=== PATIENT | female | born 1985 | race Caucasian/White ===

== ENCOUNTER 2020-12-17 12:00 | Emergency (ER) | payer MEDICAID, OTHER ==
[~2020-12-17] VITALS: Ht 160 cm; Wt 48.9 kg
[2020-12-17 14:21] LABS: ALBUMIN 3.9 GM/DL (3.2-5.2); ALT/SGPT 22 U/L (12-78); BILIRUBIN,DIRECT 0.1 MG/DL (0.0-0.2); BILIRUBIN,TOTAL 0.5 MG/DL (0.2-1.0); BLOOD UREA NITROGEN 14 MG/DL (7-18); CALCIUM LEVEL 8.8 MG/DL (8.5-10.1); CARBON DIOXIDE LEVEL 26 MEQ/L (21-32); CHLORIDE LEVEL 109 MEQ/L (98-107); CREATININE FOR GFR 0.68 MG/DL (0.55-1.30); GLOMERULAR FILTRATION RATE > 60.0 (>60); GLUCOSE, FASTING 77 MG/DL (70-100); POTASSIUM SERUM 4.2 MEQ/L (3.5-5.1); SODIUM LEVEL 140 MEQ/L (136-145); TOTAL PROTEIN 6.7 GM/DL (6.4-8.2)
[2020-12-17 14:49] LABS: HEMATOCRIT 43.6 % (36.0-47.0); MEAN CORPUSCULAR HEMOGLOBIN 29.2 pg (27.0-33.0); MEAN CORPUSCULAR HGB CONC 32.1 g/dl (32.0-36.5); MEAN CORPUSCULAR VOLUME 90.8 fl (80.0-96.0); PLATELET COUNT, AUTOMATED 86 10^3/uL (150-450); WHITE BLOOD COUNT 7.4 10^3/uL (4.0-10.0)
[2020-12-17 15:36] VITALS: BP 111/63
== END 2020-12-17 16:11 | disposition home or self-care (01) ==
LOC: M ED 12:00
DX: D69.6 Thrombocytopenia, unspecified (principal); K21.9 Gastro-esophageal reflux disease without esophagitis; Z88.8 Allergy status to other drugs, medicaments and biological substances; Z91.018 Allergy to other foods; Z91.040 Latex allergy status; F17.210 Nicotine dependence, cigarettes, uncomplicated

== ENCOUNTER → 2021-04-05 | Outpatient (REF) | payer OTHER, MEDICAID ==
[2021-04-05 17:58] LABS: BASO # 0.1 10^3/uL (0.0-0.2); BASO % 0.5 % (0.0-1.0); EOS # 0.2 10^3/uL (0.0-0.5); EOS % 1.9 % (0.0-3.0); HEMATOCRIT 44.2 % (36.0-47.0); HEMOGLOBIN 14.3 g/dl (12.0-15.5); LYMPH # 1.5 10^3/uL (1.5-5.0); LYMPH % 15.9 % (24.0-44.0); MEAN CORPUSCULAR HEMOGLOBIN 29.4 pg (27.0-33.0); MEAN CORPUSCULAR HGB CONC 32.4 g/dl (32.0-36.5); MEAN CORPUSCULAR VOLUME 90.9 fl (80.0-96.0); MONO # 0.5 10^3/uL (0.0-0.8); MONO % 5.6 % (2.0-8.0); NEUTROPHILS # 6.9 10^3/uL (1.5-8.5); NEUTROPHILS % 75.6 % (36.0-66.0); PLATELET COUNT, AUTOMATED 102 10^3/uL (150-450); RED BLOOD COUNT 4.86 10^6/uL (4.00-5.40); WHITE BLOOD COUNT 9.1 10^3/uL (4.0-10.0)
[2021-04-05 18:21] LABS: FREE T4 0.92 NG/DL (0.76-1.46); THYROID STIMULATING HORMONE 1.31 uIU/ML (0.358-3.740)
[2021-04-05 18:22] LABS: LUTEINIZING HORMONE 7.9 mIU/mL
[2021-04-05 18:23] LABS: FOLLICLE STIMULATING HORMONE 8.2 mIU/mL
== END ==
LOC: M SFHCPLAZ 15:13 → M SFHCADAM 15:17
PROVIDERS: ATTEND Family Medicine
DX: D69.3 Immune thrombocytopenic purpura (principal)

== ENCOUNTER 2021-06-02 15:39 | Emergency (ER) | payer MEDICAID, OTHER ==
[~2021-06-02] VITALS: Ht 157.5 cm; Wt 52.2 kg
[2021-06-02] MEDS ORDERED: NS 1,000 ML IV ONE (18:40)
[2021-06-02 20:27] LABS: BASO # 0.1 10^3/uL (0.0-0.2); BASO % 0.6 % (0.0-1.0); EOS # 0.2 10^3/uL (0.0-0.5); EOS % 2.2 % (0.0-3.0); HEMATOCRIT 44.2 % (36.0-47.0); HEMOGLOBIN 14.4 g/dl (12.0-15.5); LYMPH # 2.8 10^3/uL (1.5-5.0); LYMPH % 27.5 % (24.0-44.0); MEAN CORPUSCULAR HEMOGLOBIN 29.2 pg (27.0-33.0); MEAN CORPUSCULAR HGB CONC 32.6 g/dl (32.0-36.5); MEAN CORPUSCULAR VOLUME 89.7 fl (80.0-96.0); MONO # 0.8 10^3/uL (0.0-0.8); NEUTROPHILS # 6.2 10^3/uL (1.5-8.5); NEUTROPHILS % 61.4 % (36.0-66.0); PLATELET COUNT, AUTOMATED 109 10^3/uL (150-450); RED BLOOD COUNT 4.93 10^6/uL (4.00-5.40); WHITE BLOOD COUNT 10.1 10^3/uL (4.0-10.0)
[2021-06-02 20:36] VITALS: BP 117/56
[2021-06-02 20:49] LABS: ALBUMIN 4.1 GM/DL (3.2-5.2); ALT/SGPT 30 U/L (12-78); BILIRUBIN,DIRECT 0.2 MG/DL (0.0-0.2); BILIRUBIN,TOTAL 0.5 MG/DL (0.2-1.0); BLOOD UREA NITROGEN 9 MG/DL (7-18); CALCIUM LEVEL 9.4 MG/DL (8.5-10.1); CARBON DIOXIDE LEVEL 26 MEQ/L (21-32); CHLORIDE LEVEL 109 MEQ/L (98-107); CREATININE FOR GFR 0.64 MG/DL (0.55-1.30); GLOMERULAR FILTRATION RATE > 60.0 (>60); GLUCOSE, FASTING 80 MG/DL (70-100); SODIUM LEVEL 141 MEQ/L (136-145); TOTAL PROTEIN 7.1 GM/DL (6.4-8.2)
[2021-06-02] MEDS ORDERED: ISOVUE-370 76% 100ML VIAL As Ordered ONE (20:59)
[2021-06-02] MEDS ORDERED: METR-265 PO (22:44)
[2021-06-02] MEDS ORDERED: CIPR-249 PO (22:44)
[2021-06-02] MEDS ORDERED: CIPROFLOXACIN 500MG TABLET PO ONE (22:45)
[2021-06-02] MEDS ORDERED: metroNIDAZOLE (FLAGYL) 500MG TABLET PO ONE (22:45)
== END 2021-06-02 23:06 | disposition home or self-care (01) ==
LOC: EDBD 15:39 → M ED 15:39
DX: K52.9 Noninfective gastroenteritis and colitis, unspecified (principal); F44.81 Dissociative identity disorder; Z88.8 Allergy status to other drugs, medicaments and biological substances; Z91.018 Allergy to other foods; Z91.040 Latex allergy status
CPT/HCPCS: 74177; 80048; 80076; 81001; 84702; 85025; 87088; 87186; 96360; 96361; 99284; Q9967

== ENCOUNTER → 2021-06-08 | Outpatient (CLI) | payer OTHER, MEDICAID ==
[~2021-06-08] MED LIST: CIPR-249 PO; METR-265 PO
== END ==
LOC: M ADAMS 13:55
PROVIDERS: ATTEND Physician Assistant
DX: M25.571 Pain in right ankle and joints of right foot (principal)

== ENCOUNTER 2023-03-21 11:45 | Emergency (ER) | payer MEDICAID, MEDICARE, OTHER ==
[~2023-03-21] VITALS: Ht 162.6 cm; Wt 50.6 kg
[2023-03-21 11:46] VITALS: BP 107/67; TEMP 98.7; O2SAT 97
[2023-03-21 12:39] LABS: BASO # 0.1 10^3/uL (0.0-0.2); BASO % 0.7 % (0.0-1.0); EOS # 0.2 10^3/uL (0.0-0.5); EOS % 2.1 % (0.0-3.0); HEMATOCRIT 40.7 % (36.0-47.0); HEMOGLOBIN 13.6 g/dl (12.0-15.5); LYMPH # 1.8 10^3/uL (1.5-5.0); LYMPH % 18.6 % (24.0-44.0); MEAN CORPUSCULAR HEMOGLOBIN 29.9 pg (27.0-33.0); MEAN CORPUSCULAR HGB CONC 33.4 g/dl (32.0-36.5); MEAN CORPUSCULAR VOLUME 89.5 fl (80.0-96.0); MONO # 0.9 10^3/uL (0.0-0.8); MONO % 9.1 % (2.0-8.0); NEUTROPHILS # 6.6 10^3/uL (1.5-8.5); NEUTROPHILS % 69.1 % (36.0-66.0); RED BLOOD COUNT 4.55 10^6/uL (4.00-5.40); WHITE BLOOD COUNT 9.5 10^3/uL (4.0-10.0)
[2023-03-21 12:57] LABS: PLATELET COUNT, AUTOMATED 81 10^3/uL (150-450)
[2023-03-21 13:21] LABS: BLOOD UREA NITROGEN 9 MG/DL (9-23); CALCIUM LEVEL 8.9 MG/DL (8.5-10.1); CARBON DIOXIDE LEVEL 27 MMOL/L (20-31); CHLORIDE LEVEL 106 MMOL/L (98-107); CREATININE FOR GFR 0.58 MG/DL (0.55-1.30); GLOMERULAR FILTRATION RATE > 60.0 (>60); GLUCOSE, FASTING 85 MG/DL (60-100); HCG, SERUM QUANTITATIVE < 2.6 MIU/ML (<4.2); SODIUM LEVEL 138 MMOL/L (136-145)
== END 2023-03-21 14:42 | disposition home or self-care (01) ==
LOC: M ED 11:45
DX: N93.9 Abnormal uterine and vaginal bleeding, unspecified (principal); Z91.018 Allergy to other foods; Z88.8 Allergy status to other drugs, medicaments and biological substances; Z91.040 Latex allergy status; Z79.899 Other long term (current) drug therapy; Z79.2 Long term (current) use of antibiotics

== ENCOUNTER 2023-06-29 19:57 | Emergency (ER) | payer MEDICAID, MEDICARE ==
[~2023-06-29] VITALS: Ht 162.6 cm; Wt 50.0 kg
[2023-06-29 21:46] LABS: BASO # 0.1 10^3/uL (0.0-0.2); BASO % 0.8 % (0.0-1.0); EOS # 0.2 10^3/uL (0.0-0.5); EOS % 1.7 % (0.0-3.0); HEMATOCRIT 45.7 % (36.0-47.0); HEMOGLOBIN 15.3 g/dl (12.0-15.5); LYMPH # 1.9 10^3/uL (1.5-5.0); LYMPH % 19.5 % (24.0-44.0); MEAN CORPUSCULAR HEMOGLOBIN 29.9 pg (27.0-33.0); MEAN CORPUSCULAR HGB CONC 33.5 g/dl (32.0-36.5); MEAN CORPUSCULAR VOLUME 89.4 fl (80.0-96.0); MONO # 0.9 10^3/uL (0.0-0.8); MONO % 9.4 % (2.0-8.0); NEUTROPHILS # 6.6 10^3/uL (1.5-8.5); NEUTROPHILS % 68.1 % (36.0-66.0); PLATELET COUNT, AUTOMATED 118 10^3/uL (150-450); RED BLOOD COUNT 5.11 10^6/uL (4.00-5.40); WHITE BLOOD COUNT 9.6 10^3/uL (4.0-10.0)
[2023-06-29] MEDS: MORPHINE 2 MG/ML 1ML VIAL IV ONE (22:00)
[2023-06-29] MEDS ORDERED: ISOVUE-370 76% 100ML VIAL As Ordered ONE (22:04)
[2023-06-29 22:09] LABS: LIPASE 30 U/L (12-53)
[2023-06-29 22:11] LABS: ALKALINE PHOSPHATASE 92 U/L (46-116); ALT/SGPT 16 U/L (7.0-40); AST/SGOT 22 U/L (<34); BILIRUBIN,DIRECT 0.1 MG/DL (<0.4); BILIRUBIN,TOTAL 0.4 MG/DL (0.3-1.2); BLOOD UREA NITROGEN 11 MG/DL (9-23); CALCIUM LEVEL 9.2 MG/DL (8.5-10.1); CARBON DIOXIDE LEVEL 27 MMOL/L (20-31); CHLORIDE LEVEL 106 MMOL/L (98-107); CREATININE FOR GFR 0.53 MG/DL (0.55-1.30); GLOMERULAR FILTRATION RATE > 60.0 (>60); GLUCOSE, FASTING 84 MG/DL (60-100); POTASSIUM SERUM 4.2 MMOL/L (3.5-5.1); SODIUM LEVEL 138 MMOL/L (136-145); TOTAL PROTEIN 7.7 G/DL (5.7-8.2)
[2023-06-29] MEDS ORDERED: DOXY100T PO (23:55)
[2023-06-30 00:06] LABS: Trichomonas vaginalis (AMP) NOT DETECTED (NEGATIVE)
[2023-06-30] MEDS: cefTRIAXone 500MG VIAL IM ONE (00:25)
[2023-06-30] MEDS: LIDOCAINE 1% SDV 5ML VIAL DILUENT ONE (00:25)
[2023-06-30] MEDS: DOXYCYCLINE HYCLATE 100MG TABLET PO ONE (00:25)
[2023-06-30 00:30] LABS: GC DNA AMPLIFICATION NEGATIVE (NEGATIVE)
[2023-06-30] MEDS: traMADol 50 MG TAB (HOME DOSE PACK) PO ONE (00:54)
[2023-06-30 01:05] VITALS: BP 127/88; TEMP 98.3; O2SAT 97
== END 2023-06-30 01:10 | disposition home or self-care (01) ==
LOC: EDBD 19:57 → M ED 19:57
DX: N83.202 Unspecified ovarian cyst, left side (principal); Z20.2 Contact with and (suspected) exposure to infections with a predominantly sexual mode of transmission; K21.9 Gastro-esophageal reflux disease without esophagitis; F32.9 Major depressive disorder, single episode, unspecified; F17.200 Nicotine dependence, unspecified, uncomplicated; Z88.6 Allergy status to analgesic agent; Z91.040 Latex allergy status; Z91.018 Allergy to other foods; Z79.2 Long term (current) use of antibiotics; Z79.899 Other long term (current) drug therapy
CPT/HCPCS: 71045; 74177; 80048; 80076; 81001; 83690; 85025; 87088; 87186; 87661; 87810; 87850; 96372; 96374; 99284; J0696; Q9967

== ENCOUNTER → 2024-07-04 | Outpatient (REF) | payer MEDICAID ==
[~2024-07-04] MED LIST changes: +DOXY100T PO
[2024-07-05 11:20] LABS: APPEARANCE, URINE HAZY (CLEAR); BACTERIA, URINE AUTO NEGATIVE (NEGATIVE); BILIRUBIN, URINE AUTO NEGATIVE (NEGATIVE); BLOOD, URINE BLOOD NEGATIVE (NEGATIVE); COLOR, URINE YELLOW (YELLOW); GLUCOSE, URINE (UA) AUTO NEGATIVE (NEGATIVE); KETONE, URINE AUTO NEGATIVE (NEGATIVE); LEUKOCYTE ESTERASE, URINE AUTO NEGATIVE (NEGATIVE); MUCUS, URINE SMALL (NEGATIVE); NITRITE, URINE AUTO POSITIVE (NEGATIVE); PROTEIN, URINE AUTO NEGATIVE (NEGATIVE); RBC, URINE AUTO 0 /HPF (0-3); SPECIFIC GRAVITY URINE AUTO 1.011 (1.002-1.035); SQUAMOUS EPITHELIAL CELL UR AU 2 /HPF (0-6); UROBILINOGEN, URINE AUTO 0.2 mg/dL (0.0-2.0); WBC, URINE AUTO 2 /HPF (0-3)
[2024-07-09 14:37] LABS: HPV APTIMA Not Detected (Not Detected)
== END ==
LOC: M SFHCPLAZ 10:19
PROVIDERS: ATTEND Family Medicine
DX: Z01.419 Encounter for gynecological examination (general) (routine) without abnormal findings (principal); D69.3 Immune thrombocytopenic purpura; N39.41 Urge incontinence; Z77.9 Other contact with and (suspected) exposures hazardous to health

== ENCOUNTER → 2025-03-13 | Outpatient (CLI) | payer OTHER | LOC: M SOG 07:40 | PROVIDERS: ATTEND Physician Assistant | DX: M25.572 Pain in left ankle and joints of left foot (principal) ==

== ENCOUNTER → 2025-03-31 | Outpatient (CLI) | payer OTHER | LOC: M SOG 07:49 | PROVIDERS: ATTEND Physician Assistant | DX: M25.572 Pain in left ankle and joints of left foot (principal); Z53.9 Procedure and treatment not carried out, unspecified reason ==

== ENCOUNTER 2025-04-04 17:40 | Emergency (ER) | payer OTHER ==
[~2025-04-04] VITALS: Ht 162.6 cm; Wt 56.7 kg
[2025-04-04] MEDS ORDERED: BUPR150T12 (18:07)
[2025-04-04] MEDS ORDERED: MIRT-10 (18:07)
[2025-04-04] MEDS ORDERED: TRAM50TA2 PO (18:07)
[2025-04-04] MEDS ORDERED: FLUTISP (18:08)
[2025-04-04] MEDS ORDERED: ALBU8.5H (18:09)
[2025-04-04] MEDS: CYCLOBENZAPRINE 5 MG TABLET PO ONE (23:14)
[2025-04-04] MEDS: traMADol 50 MG TAB PO ONE (23:15)
[2025-04-05 01:20] VITALS: BP 128/74; TEMP 97.2; O2SAT 99
== END 2025-04-05 01:23 | disposition home or self-care (01) ==
LOC: M ED 17:40
DX: R51.9 Headache, unspecified (principal); R59.9 Enlarged lymph nodes, unspecified; Z88.6 Allergy status to analgesic agent; Z91.040 Latex allergy status; J45.909 Unspecified asthma, uncomplicated; F17.200 Nicotine dependence, unspecified, uncomplicated

== ENCOUNTER → 2025-04-17 | Outpatient (CLI) | payer OTHER ==
[~2025-04-17] MED LIST changes: +ALBU8.5H; +BUPR150T12; +FLUTISP; +MIRT-10; +TRAM50TA2 PO
== END ==
LOC: M SOG 07:57
PROVIDERS: ATTEND Physician Assistant
DX: Z53.9 Procedure and treatment not carried out, unspecified reason (principal)

== ENCOUNTER → 2025-04-28 | Outpatient (CLI) | payer OTHER | LOC: M SOG 07:35 | PROVIDERS: ATTEND Physician Assistant | DX: M25.572 Pain in left ankle and joints of left foot (principal); Z53.9 Procedure and treatment not carried out, unspecified reason ==